=== PATIENT | male | born 1990 | race Caucasian/White ===

== ENCOUNTER 2016-12-15 13:06 | Emergency (ER) | payer OTHER ==
--- NOTE | 2016-12-15 14:07 | ER Document Report ---
ED Medical Screen (RME) - General Chief Complaint: Shoulder Injury Stated Complaint: FALL RIGHT ARM PAIN TRAVEL OUTSIDE OF THE [place] IN LAST 30 DAYS: No - HPI Patient complains to provider of: right shoulder injury Notes: 12/15/16 14:06 Patient fell injuring his right shoulder stay while on a boat - Related Data Allergies/Adverse Reactions: acetaminophen [From Tylenol] Adverse Reaction (Verified 03/09/16 19:25) Past Medical History Renal/ Medical History: Denies: Hx Peritoneal Dialysis GI Medical History: Reports: Hx Hepatitis - C Traumatic Medical History: Reports: Hx Fractures Infectious Medical History: Reports: Hx Hepatitis - C Past Surgical History: Reports: Hx Orthopedic Surgery - right hand - Immunizations Immunizations up to date: Yes Hx Diphtheria, Pertussis, Tetanus Vaccination: Yes Review of Systems - Review of Systems Musculoskeletal: Other - Right shoulder injury Physical Exam - Vital signs Vitals: Temp Pulse Resp BP Pulse Ox 97.9 F 87 16 111/73 95 12/15/16 13:22 12/15/16 13:22 12/15/16 13:22 12/15/16 13:22 12/15/16 13:22 - Respiratory Respiratory status: No respiratory distress Chest status: Nontender Breath sounds: Normal Course - Vital Signs Vital signs: Temp Pulse Resp BP Pulse Ox 97.9 F 87 16 111/73 95 12/15/16 13:22 12/15/16 13:22 12/15/16 13:22 12/15/16 13:22 12/15/16 13:22
--- NOTE | 2016-12-15 15:09 | ER Document Report ---
ED General - General Chief Complaint: Shoulder Injury Stated Complaint: FALL RIGHT ARM PAIN TRAVEL OUTSIDE OF THE [place] IN LAST 30 DAYS: No - HPI Patient complains to provider of: right shoulder injury Notes: Right shoulder injury. 24 hours at the following up with. Patient has a difficult time abduction being his shoulder from the body. Denies any other injuries denies numbness or tingling distal to the injury. - Related Data Allergies/Adverse Reactions: acetaminophen [From Tylenol] Adverse Reaction (Verified 03/09/16 19:25) Past Medical History - Social History Smoking Status: Unknown if Ever Smoked Family History: Reviewed & Not Pertinent Patient has suicidal ideation: No Patient has homicidal ideation: No Renal/ Medical History: Denies: Hx Peritoneal Dialysis GI Medical History: Reports: Hx Hepatitis - C Traumatic Medical History: Reports: Hx Fractures Infectious Medical History: Reports: Hx Hepatitis - C Past Surgical History: Reports: Hx Orthopedic Surgery - right hand - Immunizations Immunizations up to date: Yes Hx Diphtheria, Pertussis, Tetanus Vaccination: Yes Review of Systems - Review of Systems Constitutional: No symptoms reported EENT: No symptoms reported Cardiovascular: No symptoms reported Respiratory: No symptoms reported Gastrointestinal: No symptoms reported Genitourinary: No symptoms reported Male Genitourinary: No symptoms reported Musculoskeletal: Other - Right shoulder injury Skin: No symptoms reported Hematologic/Lymphatic: No symptoms reported Neurological/Psychological: No symptoms reported Physical Exam - Vital signs Vitals: Temp Pulse Resp BP Pulse Ox 97.9 F 87 16 111/73 95 12/15/16 13:22 12/15/16 13:22 12/15/16 13:22 12/15/16 13:22 12/15/16 13:22 Interpretation: Normal - General General appearance: Appears well, Alert - HEENT Head: Normocephalic, Atraumatic Eyes: Normal Pupils: PERRL - Respiratory Respiratory status: No respiratory distress Chest status: Nontender Breath sounds: Normal Chest palpation: Normal - Cardiovascular Rhythm: Regular Heart sounds: Normal auscultation Murmur: No - Abdominal Inspection: Normal Distension: No distension Bowel sounds: Normal Tenderness: Nontender Organomegaly: No organomegaly - Back Back: Normal, Nontender - Extremities General upper extremity: Normal inspection, Nontender, Normal color, Normal ROM , Normal temperature General lower extremity: Nontender, Normal color, Normal ROM, Normal temperature , Normal weight bearing. No: Normal inspection - Tenderness right shoulder examination palpation upon palpating the greater tuberosity. Patient has decreased abduction otherwise can extend and flex the shoulder. Pulses and sensation distally left unaffected, Ana M's sign - Neurological Neuro grossly intact: Yes Cognition: Normal Orientation: AAOx4 [place] Coma Scale Eye Opening: Spontaneous [place] Coma Scale Verbal: Oriented [place] Coma Scale Motor: Obeys Commands [place] Coma Scale Total: 15 Speech: Normal Motor strength normal: LUE, RUE, LLE, RLE Sensory: Normal - Psychological Associated symptoms: Normal affect, Normal mood - Skin Skin Temperature: Warm Skin Moisture: Dry Skin Color: Normal Course - Re-evaluation Re-evalutation: 12/15/16 15:07 X-ray shows no signs of fracture. Patient will be discharged home in a sling follow-up orthopedics. More likely ligamentous injury - Vital Signs Vital signs: Temp Pulse Resp BP Pulse Ox 97.9 F 87 16 111/73 95 12/15/16 13:22 12/15/16 13:22 12/15/16 13:22 12/15/16 13:22 12/15/16 13:22 Discharge - Discharge Clinical Impression: Right shoulder injury Qualifiers: Encounter type: initial encounter Qualified Code(s): S49.91XA - Unspecified injury of right shoulder and upper arm, initial encounter Condition: Good Disposition: HOME, SELF-CARE Instructions: Oral Narcotic Medication ([facility]), Exercise Program for the Shoulder ([facility]), Shoulder Injury ([facility]) Additional Instructions: I see no fracture on your x-ray today. I would recommend following up with orthopedics for possible MRI. Return to the ER symptoms worsen. At this time a radiologist has not reviewed x-ray. If there is anything different we will call you. Take medication as prescribed Prescriptions: Ibuprofen [Motrin 600 mg Tablet] 600 mg PO Q8HP PRN #20 tablet PRN Reason: Oxycodone HCl 5 mg PO Q6 #20 capsule Referrals: LAVONNE AGRAWAL MD [ACTIVE STAFF] - Follow up as needed
[2016-12-15 15:16] VITALS: BP 110/78
== END 2016-12-15 15:16 | disposition home or self-care (01) ==
LOC: ER 13:06
DX: S49.91XA Unspecified injury of right shoulder and upper arm, initial encounter (principal); W19.XXXA Unspecified fall, initial encounter
CPT/HCPCS: 99283

== ENCOUNTER 2017-02-09 18:30 | Emergency (ER) | payer OTHER ==
--- NOTE | 2017-02-09 19:15 | ER Document Report ---
ED Medical Screen (RME) - General Chief Complaint: Abscess Stated Complaint: POSSIBLE ABSCESS LEFT ARM Time Seen by Provider: 02/09/17 19:10 Notes: 26-year-old male patient with a right volar forearm abscess for the past 3 days. I have greeted and performed a rapid initial assessment of this patient. A comprehensive ED assessment and evaluation of the patient, analysis of test results and completion of the medical decision making process will be conducted by additional ED providers. TRAVEL OUTSIDE OF THE [place] IN LAST 30 DAYS: No - Related Data Allergies/Adverse Reactions: acetaminophen [From Tylenol] Adverse Reaction (Verified 02/09/17 19:08) Past Medical History Renal/ Medical History: Denies: Hx Peritoneal Dialysis GI Medical History: Reports: Hx Hepatitis - C Traumatic Medical History: Reports: Hx Fractures Infectious Medical History: Reports: Hx Hepatitis - C Past Surgical History: Reports: Hx Orthopedic Surgery - right hand - Immunizations Immunizations up to date: Yes Hx Diphtheria, Pertussis, Tetanus Vaccination: Yes Physical Exam - Vital signs Vitals: Temp Pulse Resp BP Pulse Ox 98.6 F 105 H 16 124/69 97 02/09/17 18:31 02/09/17 18:31 02/09/17 18:31 02/09/17 18:31 02/09/17 18:31 Course - Vital Signs Vital signs: Temp Pulse Resp BP Pulse Ox 98.6 F 105 H 16 124/69 97 02/09/17 18:31 02/09/17 18:31 02/09/17 18:31 02/09/17 18:31 02/09/17 18:31
[2017-02-09] MEDS ORDERED: OXYCODONE HCL IR 5 MG TABLET PO ONE (21:24)
[2017-02-09] MEDS ORDERED: LIDOCAINE 1%/EPINEPHRINE INJ 20 ML VIAL INJ ONE (21:24)
--- NOTE | 2017-02-09 21:26 | ER Document Report ---
ED Skin Rash/Insect Bite/Abscs - General Mode of Arrival: Ambulatory Information source: Patient TRAVEL OUTSIDE OF THE [place] IN LAST 30 DAYS: No - HPI Patient complains to provider of: Tender/swollen area Onset: Other - 3 days Onset/Duration: Persistent Quality of pain: Achy Severity: Moderate Pain Level: 3 Skin Character: Abscess Skin Temperature: Warm Quality of rash: Painful Identify cause: No Exacerbated by: Denies Relieved by: Denies Similar symptoms previously: Yes Recently seen / treated by doctor: No - General Chief Complaint: Abscess Stated Complaint: POSSIBLE ABSCESS LEFT ARM Time Seen by Provider: 02/09/17 19:10 - HPI Notes: Patient is a 26-year-old male who presents to the emergency room complaining of abscess to his left forearm that has been worsening over the past 3 days, he denies injury or trauma, no fevers, patient does report a history of abscesses in the past that have required incision and drainage (VIOLETTE KAPOOR) - Related Data Allergies/Adverse Reactions: acetaminophen [From Tylenol] Adverse Reaction (Verified 02/09/17 19:08) Past Medical History - General Information source: Patient - Social History Smoking Status: Current Every Day Smoker Family History: Reviewed & Not Pertinent Renal/ Medical History: Denies: Hx Peritoneal Dialysis GI Medical History: Reports: Hx Hepatitis - C Traumatic Medical History: Reports: Hx Fractures Infectious Medical History: Reports: Hx Hepatitis - C Past Surgical History: Reports: Hx Orthopedic Surgery - right hand - Immunizations Immunizations up to date: Yes Hx Diphtheria, Pertussis, Tetanus Vaccination: Yes Review of Systems - Review of Systems Constitutional: No symptoms reported EENT: No symptoms reported Cardiovascular: No symptoms reported Respiratory: No symptoms reported Gastrointestinal: No symptoms reported Genitourinary: No symptoms reported Male Genitourinary: No symptoms reported Musculoskeletal: No symptoms reported Skin: See HPI Hematologic/Lymphatic: No symptoms reported Neurological/Psychological: No symptoms reported -: Yes All other systems reviewed and negative Physical Exam - Vital signs Interpretation: Normal - Vital signs Vitals: Temp Pulse Resp BP Pulse Ox 98.6 F 105 H 16 124/69 97 02/09/17 18:31 02/09/17 18:31 02/09/17 18:31 02/09/17 18:31 02/09/17 18:31 - Notes Notes: - General General appearance: Appears well, Alert In distress: None - HEENT Head: Normocephalic, Atraumatic Eyes: Normal Conjunctiva: Normal Extraocular movements intact: Yes Eyelashes: Normal Pupils: PERRL - Respiratory Respiratory status: No respiratory distress - Cardiovascular Rhythm: Regular - Abdominal Inspection: Normal - Back Back: Normal - Extremities General upper extremity: Medial forearm with a large erythematous fluctuant abscess which is tender to palpate, distal sensation and motor is intact with 2 + radial pulse General lower extremity: Normal inspection - Neurological Neuro grossly intact: Yes Orientation: AAOx4 [place] Coma Scale Eye Opening: Spontaneous [place] Coma Scale Verbal: Oriented [place] Coma Scale Motor: Obeys Commands [place] Coma Scale Total: 15 - Psychological Associated symptoms: Normal affect, Normal mood - Skin Skin Temperature: Warm Skin Moisture: Dry Skin Color: Normal (VIOLETTE KAPOOR) Procedures - Incision and Drainage Left Forearm Time completed: 22:40 Type: Simple Anesthetic type: 1% Lidocaine mL's of anesthetic: 8 Blade size: 11 I&D procedure: Chlorprep applied Incision Method: Incision made by scalpel Adult Front & Back picture: 1 - Large subcutaneous abscess Discharge - Discharge Clinical Impression: Abscess of forearm, left Condition: Stable Disposition: HOME, SELF-CARE Instructions: Abscess ([facility]), Post Incision and Drainage, Oral Narcotic Medication ([facility]), Trimethoprim-Sulfa ([facility]) Additional Instructions: Follow up with your primary care provider in one to 2 days. Return to the emergency room immediately if symptoms worsen or any additional concerns. Prescriptions: Doxycycline Hyclate 100 mg PO BID #14 capsule Oxycodone HCl 5 mg PO Q6 #14 capsule Sulfamethoxazole/Trimethoprim [Bactrim Ds Tablet] 1 each PO BID #20 tablet Forms: Smoking Cessation Education, Return to Work
[2017-02-09] MEDS ORDERED: DOXYCYCLINE HYCLATE 100 MG TABLET PO ONE (22:49)
[2017-02-09 23:26] VITALS: BP 111/60
== END 2017-02-09 22:45 | disposition home or self-care (01) ==
LOC: ER 18:30
PROC: 0H9EXZZ Drainage of Left Lower Arm Skin, External Approach (ICD-10-PCS; principal; 2017-02-09)
DX: L02.414 Cutaneous abscess of left upper limb (principal); F17.200 Nicotine dependence, unspecified, uncomplicated
CPT/HCPCS: 99283; 10060; J3490; A6266

== ENCOUNTER 2017-05-26 10:14 | Emergency (ER) | payer OTHER ==
[2017-05-26 10:18] VITALS: BP 130/71
--- NOTE | 2017-05-26 10:40 | ER Document Report ---
ED Skin Rash/Insect Bite/Abscs - General Chief Complaint: Abscess Stated Complaint: POSSIBLE ABCESS Time Seen by Provider: 05/26/17 10:22 Mode of Arrival: Ambulatory Information source: Patient Notes: 27-year-old male presents to ED for possible abscess to the left buttocks 3 days. Denies any history of face fevers MRSA or drainage. States is progressively getting larger and more painful. TRAVEL OUTSIDE OF THE [place] IN LAST 30 DAYS: No - HPI Patient complains to provider of: Tender/swollen area Onset: Other Onset/Duration: Gradual - 3 days Quality of pain: Burning, Sharp Severity: Moderate Pain Level: 3 Skin Character: Abscess Skin Temperature: Warm Quality of rash: Painful Identify cause: No Exacerbated by: Sitting Relieved by: Denies Similar symptoms previously: Yes Recently seen / treated by doctor: No - Related Data Allergies/Adverse Reactions: acetaminophen [From Tylenol] Adverse Reaction (Verified 05/26/17 10:18) Home Medications: Current Home Medications Duloxetine HCl [Cymbalta] 60 mg PO DAILY 05/26/17 [History] Past Medical History - General Information source: Patient - Social History Smoking Status: Current Every Day Smoker Cigarette use (# per day): Yes - Pack per day Chew tobacco use (# tins/day): No Smoking Education Provided: Yes - Less than 3 minutes Frequency of alcohol use: Occasional Drug Abuse: None 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 Lives with: Family Family History: Malignancy, Other Patient has suicidal ideation: No Patient has homicidal ideation: No - Past Medical History Cardiac Medical History: Reports: None Pulmonary Medical History: Reports: Hx Bronchitis EENT Medical History: Reports: None Neurological Medical History: Reports: Other - Complex regional pain Endocrine Medical History: Reports: None Renal/ Medical History: Reports: None Malignancy Medical History: Reports None GI Medical History: Reports: Hx Hepatitis - C Musculoskeltal Medical History: Reports Hx Musculoskeletal Deformity, Reports Hx Musculoskeletal Trauma Skin Medical History: Reports Hx Cellulitis Psychiatric Medical History: Reports: Hx Depression Traumatic Medical History: Reports: Hx Fractures Infectious Medical History: Reports: Hx Hepatitis - C Past Surgical History: Reports: Hx Orthopedic Surgery - right hand, Hx Tonsillectomy - Immunizations Immunizations up to date: Yes Hx Diphtheria, Pertussis, Tetanus Vaccination: Yes - 2015 Review of Systems - Review of Systems Constitutional: No symptoms reported EENT: No symptoms reported Cardiovascular: No symptoms reported Respiratory: No symptoms reported Gastrointestinal: No symptoms reported Genitourinary: No symptoms reported Male Genitourinary: No symptoms reported Musculoskeletal: Back pain, Muscle pain, Muscle stiffness Skin: No symptoms reported Hematologic/Lymphatic: No symptoms reported Neurological/Psychological: No symptoms reported Physical Exam - Vital signs Vitals: Temp Pulse Resp BP Pulse Ox 97.8 F 82 18 130/71 H 98 05/26/17 10:17 05/26/17 10:17 05/26/17 10:17 05/26/17 10:05/26/17 10:17 Interpretation: Normal - General General appearance: Appears well, Alert - HEENT Head: Normocephalic, Atraumatic Eyes: Normal Pupils: PERRL - Respiratory Respiratory status: No respiratory distress Chest status: Nontender Breath sounds: Normal Chest palpation: Normal - Cardiovascular Rhythm: Regular Heart sounds: Normal auscultation Murmur: No - Abdominal Inspection: Normal Distension: No distension Bowel sounds: Normal Tenderness: Nontender Organomegaly: No organomegaly - Back Back: Normal, Tender. No: Deformity/step-off, CVA tenderness, Vertebra tenderness - Paravertebral ligament tenderness, Scars, Scoliosis, Wounds - Extremities General upper extremity: Normal inspection, Nontender, Normal color, Normal ROM , Normal temperature General lower extremity: Normal inspection, Nontender, Normal color, Normal ROM , Normal temperature, Normal weight bearing. No: Ana M's sign - Neurological Neuro grossly intact: Yes Cognition: Normal Orientation: AAOx4 [place] Coma Scale Eye Opening: Spontaneous [place] Coma Scale Verbal: Oriented [place] Coma Scale Motor: Obeys Commands [place] Coma Scale Total: 15 Speech: Normal Motor strength normal: LUE, RUE, LLE, RLE Sensory: Normal - Psychological Associated symptoms: Normal affect, Normal mood - Skin Skin Temperature: Warm Skin Moisture: Dry Skin Color: Normal Course - Re-evaluation Re-evalutation: 05/26/17 13:17 No loss control of bowel bladder, no loss of muscle control, no loss of sensation, no saddle anesthesia, no signs or symptoms of cauda equina, patient states 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 He has a extensive history of back pain. Patient was given a copy of the written report of the x-ray and discussed with him. Patient to follow-up with his primary doctor and a back specialist. Patient was treated with ibuprofen and IM steroids. He was given a prescription for ibuprofen and muscle relaxers and Phenergan as he states that sometimes the pain makes him nauseated. Patient will be discharged home to follow-up with his primary doctor. - Vital Signs Vital signs: Temp Pulse Resp BP Pulse Ox 97.8 F 82 18 130/71 H 98 05/26/17 10:17 05/26/17 10:17 05/26/17 10:17 05/26/17 10:05/26/17 10:17 Discharge - Discharge Clinical Impression: Abscess of left buttock Condition: Stable Disposition: HOME, SELF-CARE Instructions: Family Physicians / Practices Additional Instructions: ABSCESS: You have an abscess (boil). This a pus-forming infection, usually due to staph. Some boils may be left to drain on their own, but most require lancing. From the time the tender lump first appears, it may be three or four days before the abscess is ready to steven. Local heat and rest help at this stage of treatment. An antibiotic may prevent spread of the infection. Once the abscess is opened, packing may be placed into it. This is done so pus is not sealed inside by premature closure of the cavity. The packing will be removed at your follow-up visit or you may be advised to remove it yourself at home. Sometimes this packing must be replaced a few times during healing. The wound will heal with surprisingly little scar. Depending on the size and location of an abscess, healing can take one to four weeks. You may shower and wash the area around the incision site two or three times a day. Antibiotics may be prescribed, but are usually not necessary after an abscess has been drained. If you develop fever, chills, worsening pain, or increasing swelling in the area, call the doctor or return immediately. POST INCISION AND DRAINAGE: You have had an incision made to allow drainage of an abscess. The incision must remain open so that pus and debris can drain from the wound. If the abscess cavity is large, packing is placed. This keeps the tissues from collapsing and trapping pus inside, while the body shrinks the cavity. The packing may need to be replaced every day or two. The physician will instruct you on the packing. Keep a bulky dressing over the area. Replace it if it becomes saturated with blood or pus. Do not disturb the packing (if present). You may shower and cleanse the area with gentle soap and warm water two or three times a day. Local warmth may be soothing, and may promote faster healing. Return if you develop high fever or chills, or if you note spreading redness, increasing swelling, or increasing tenderness. SOAP CLEANSING: Gently wash the wound daily using a mild soap (like Ivory, Phisoderm, Neutrogena). Use warm water, rubbing gently until all debris, ooze, and crusting have been washed from the wound. Allow to dry briefly (about 10 minutes) after cleaning. Repeat this cleansing at least three times a day for the first two days and then once or twice a day. ANTIBIOTIC OINTMENT PROTECTION: Your wounds are such that dressing them is not practical or optional. After cleansing, you should apply a thin coating of antibiotic ointment ( Bacitracin, not Neosporin) to the wounds at least three times daily. This lessens infection risk, and may decrease the amount of scarring. Use a q-tip or dull butter knife, not your finger, to apply this ointment. Any debris or ooze which builds up in the ointment should be gently rubbed off with a sterile gauze pad. Harder crusting may need to be gently scrubbed off with a clean wash cloth with soap and warm water, perhaps applying a warm, wet wash cloth to the wound for ten minutes first. Development of redness, severe itching, or blistering may mean allergy to the ointment. See the doctor. CEPHALEXIN: The antibiotic you've been prescribed is a member of the cephalosporin class. This type of antibiotic covers a wide variety of infections, including those of the skin, lungs, and urinary tract. It's useful for staph infections. This antibiotic is slightly similar to the penicillin family. In rare cases , a person who is allergic to penicillin will also be allergic to this medication. If you have had a severe allergic reaction to penicillin, and have not taken this antibiotic since that time, notify your doctor. Antibiotics which cover many germs ("broad spectrum" antibiotics) are more likely to cause diarrhea or "yeast" infections. Women prone to vaginal yeast problems may suffer an attack after taking this antibiotic. In infants, oral thrush (white spots "stuck" on the cheek) or yeast diaper rash may result. See your doctor if these problems occur. Call at once if you develop itching, hives , shortness of breath, or lightheadedness. TRIMETHOPRIM-SULFA: You have been given a prescription for trimethoprim-sulfa (TMS, Septra, Bactrim). This is a combination antibiotic of the sulfa class, often used for urinary tract infections, middle ear infections, bronchitis, shigella intestinal infection, and Pneumocystis pneumonia. TMS is usually well-tolerated. Occasional side effects include nausea and decreased appetite. Septra is not recommended for infants less than two months of age. Do not take this medication if you have experienced severe side effects or allergy to sulfa medicine. You should stop this medicine at once and contact your physician if you develop any rash, joint pain, shortness of breath, bruising, or jaundice ( yellow color in the skin), or if you develop any other new or unusual symptoms. Epsom Salt Soaks Soak the wound area in a container of warm epsom salt water. If you can't get the wound area into a bucket or fuentes, use a folded towel soaked in the epsom salt solution and apply to the area. Use clean hot tap water (about the temperature of a very warm bath), mixing in about one (1) teaspoon for every pint of water. Two gallon --> 16 teaspoons Epsom Salts One gallon --> 8 teaspoons Epsom Salts Two quarts --> 4 teaspoons Epsom Salts One quart --> 2 teaspoons Epsom Salts Soak the wound for about 20 minutes while gently moving it around in the water. Repeat this four (4) times a day. FOLLOW-UP CARE: Most simple abscesses will not require a follow up visit. If you had packing placed in the abscess, remove it as instructed by the physician. If you have been referred to a physician for follow-up care, call the physicians office for an appointment as you were instructed or within the next two days. If you experience worsening or a significant change in your symptoms, return to the Emergency Department at any time for re-evaluation. Prescriptions: Cephalexin Monohydrate [Keflex 500 mg Capsule] 500 mg PO QID #20 capsule Sulfamethoxazole/Trimethoprim [Bactrim Ds Tablet] 1 each PO BID #20 tablet Forms: Elevated Blood Pressure, Smoking Cessation Education
== END 2017-05-26 10:49 | disposition home or self-care (01) ==
LOC: ER 10:14
DX: L02.31 Cutaneous abscess of buttock (principal); F17.210 Nicotine dependence, cigarettes, uncomplicated
CPT/HCPCS: 99283

== ENCOUNTER 2017-09-19 20:40 | Emergency (ER) | payer OTHER, MEDICAID ==
--- NOTE | 2017-09-19 22:12 | ER Document Report ---
ED Medical Screen (RME) - General Chief Complaint: Arm Problem Stated Complaint: ARM PAIN Time Seen by Provider: 09/19/17 22:09 Mode of Arrival: Medic Information source: Patient Notes: 27-year-old male with bilateral complex regional pain syndrome in both arms is complaining of increased burning severe pain to his arms because he ran out of gabapentin. He takes 1800 mg nightly (gralise) and has not had it since September 17. In the [facility] when [facility] these flares [facility], oxycodone 10 mg. He thinks that this flare is because he ran out of the gabapentin. TRAVEL OUTSIDE OF THE [place] IN LAST 30 DAYS: No - Related Data Allergies/Adverse Reactions: acetaminophen [From Tylenol] Adverse Reaction (Verified 09/19/17 20:55) Past Medical History Pulmonary Medical History: Reports: Hx Bronchitis Renal/ Medical History: Denies: Hx Peritoneal Dialysis GI Medical History: Reports: Hx Hepatitis - C Musculoskeltal Medical History: Reports Hx Musculoskeletal Deformity, Reports Hx Musculoskeletal Trauma Skin Medical History: Reports Hx Cellulitis Psychiatric Medical History: Reports: Hx Depression Traumatic Medical History: Reports: Hx Fractures Infectious Medical History: Reports: Hx Hepatitis - C Past Surgical History: Reports: Hx Oral Surgery, Hx Orthopedic Surgery - right hand, Hx Tonsillectomy - Immunizations Immunizations up to date: Yes Hx Diphtheria, Pertussis, Tetanus Vaccination: Yes - 2015 Physical Exam - Vital signs Vitals: Temp Pulse Resp BP 98.1 F 55 L 22 H 129/96 H 09/19/17 21:06 09/19/17 21:06 09/19/17 21:06 09/19/17 21:06 Course - Vital Signs Vital signs: Temp Pulse Resp BP Pulse Ox 98.1 F 55 L 22 H 129/96 H 09/19/17 21:06 09/19/17 21:06 09/19/17 21:06 09/19/17 21:06
[2017-09-19] MEDS ORDERED: HYDROMORPHONE HCL INJ/PF 2 MG/ML AMPULE IM ONE (22:59)
[2017-09-19] MEDS ORDERED: HYDROCODONE/ACETAMINOPHEN 5-325 MG (6 TAB/ER DISP) PO PRN (22:59)
--- NOTE | 2017-09-19 23:06 | ER Document Report ---
HPI - HPI Patient complains to provider of: bilateral arm pain Pain Level: 5 Context: Patient is a 27-year-old male that comes emergency department for chief complaint of bilateral arm pain, he states he gets a burning pain in his arms and he breaks out into a sweat on his arms. He has been diagnosed with chronic regional pain syndrome after having multiple tendon repairs on his upper extremities. [facility], both of them are closed due to inclement weather until this coming Friday. He states he is now out of his gabapentin and Cymbalta. He denies fever chills, injury, he denies any new symptoms. He states his symptoms are consistent with the pain that he gets when the weather gets very cold. Past Medical History - General Information source: Patient - Social History Smoking Status: Never Smoker Frequency of alcohol use: Occasional Drug Abuse: None Lives with: Family Family History: Malignancy, Other Patient has suicidal ideation: No Patient has homicidal ideation: No Pulmonary Medical History: Reports: Hx Bronchitis Renal/ Medical History: Denies: Hx Peritoneal Dialysis GI Medical History: Reports: Hx Hepatitis - C Musculoskeltal Medical History: Reports Hx Musculoskeletal Deformity, Reports Hx Musculoskeletal Trauma Skin Medical History: Reports Hx Cellulitis Psychiatric Medical History: Reports: Hx Depression Traumatic Medical History: Reports: Hx Fractures Infectious Medical History: Reports: Hx Hepatitis - C Past Surgical History: Reports: Hx Oral Surgery, Hx Orthopedic Surgery - right hand, Hx Tonsillectomy - Immunizations Immunizations up to date: Yes Hx Diphtheria, Pertussis, Tetanus Vaccination: Yes - 2015 [facility] Provider Document - CONSTITUTIONAL General Appearance: WD/WN, No Apparent Distress - INFECTION CONTROL TRAVEL OUTSIDE OF THE [place] IN LAST 30 DAYS: No - HEENT HEENT: Atraumatic, Normocephalic - NECK Neck: Normal Inspection - RESPIRATORY Respiratory: Breath Sounds Normal, No Respiratory Distress - CARDIOVASCULAR Cardiovascular: Regular Rate, Regular Rhythm - GI/ABDOMEN Gastrointestinal: Abdomen Soft, Abdomen Non-Tender - BACK Back: Normal Inspection - MUSCULOSKELETAL/EXTREMETIES Musculoskeletal/Extremeties: Tender - Patient has pain with palpation which is mild over the general upper extremities and hands. Somewhat clammy hands. Good pulses and sensation. Normal upper extremity exam otherwise. - NEURO Level of Consciousness: Awake, Alert, Appropriate - DERM Integumentary: Warm, Dry, No Rash Course - Re-evaluation Re-evalutation: Patient with no new symptoms although he is in between his regular providers with inability to get to them until a few days from now. He is prescribed his regular medications. Discussed follow-up and return precautions. Patient states understanding and agreement. - Vital Signs Vital signs: Temp Pulse Resp BP Pulse Ox 98.1 F 55 L 22 H 129/96 H 09/19/17 21:06 09/19/17 21:06 09/19/17 21:06 09/19/17 21:06 Discharge - Discharge Clinical Impression: Arm pain Qualifiers: Laterality: bilateral Qualified Code(s): M79.601 - Pain in right arm Condition: Stable Disposition: HOME, SELF-CARE Additional Instructions: Take your prescribed medications as directed. Follow-up closely with your provider for additional management and scripts. Return for any concerning symptoms including fevers, swelling, or any other concerning symptoms. Prescriptions: Duloxetine HCl [Cymbalta] 60 mg PO DAILY #30 capsule. Gabapentin [Gralise] 600 mg PO ASDIR #30 tab.er.24h
[2017-09-19 23:20] VITALS: BP 135/76
== END 2017-09-19 23:24 | disposition home or self-care (01) ==
LOC: ER 20:40
DX: M79.602 Pain in left arm (principal); M79.601 Pain in right arm; Z86.19 Personal history of other infectious and parasitic diseases
CPT/HCPCS: 99283; 96372; J1170

== ENCOUNTER 2017-10-01 13:43 | Emergency (ER) | payer OTHER, MEDICAID ==
[2017-10-01] MEDS ORDERED: OXYCODONE-ACETAMINOPHEN 5-325 MG TABLET PO ONE (14:14)
[2017-10-01] MEDS ORDERED: ONDANSETRON 4 MG TAB.RAPDIS PO ONE (14:14)
--- NOTE | 2017-10-01 14:16 | ER Document Report ---
ED Medical Screen (RME) - General Chief Complaint: Hand Injury Stated Complaint: HAND INJURY Time Seen by Provider: 10/01/17 14:04 Notes: Reports the right third finger was crushed between 2 6 x 6 is. There is an abrasion along the dorsal radial aspect of the proximal phalanx. There is swelling and tenderness over the dorsal proximal phalanx. He is unable to extend the finger at the PIP. There is good flexion. There is prior history of injury to tendon slips on the same finger requiring 3 separate surgeries. He was seen here on 01/10/2016 with another injury, referred to Dr. Sims, but surgery was not necessary on that visit. I have greeted and performed a rapid initial assessment of this patient. A comprehensive ED assessment and evaluation of the patient, analysis of test results and completion of the medical decision making process will be conducted by additional ED providers. TRAVEL OUTSIDE OF THE [place] IN LAST 30 DAYS: No - Related Data Allergies/Adverse Reactions: No Known Allergies Allergy (Verified 10/01/17 13:59) Past Medical History - Social History Chew tobacco use (# tins/day): No Frequency of alcohol use: None Drug Abuse: None Pulmonary Medical History: Reports: Hx Bronchitis Renal/ Medical History: Denies: Hx Peritoneal Dialysis GI Medical History: Reports: Hx Hepatitis - C Musculoskeltal Medical History: Reports Hx Musculoskeletal Deformity, Reports Hx Musculoskeletal Trauma Skin Medical History: Reports Hx Cellulitis Psychiatric Medical History: Reports: Hx Depression Traumatic Medical History: Reports: Hx Fractures Infectious Medical History: Reports: Hx Hepatitis - C Past Surgical History: Reports: Hx Oral Surgery, Hx Orthopedic Surgery - right hand, Hx Tonsillectomy - Immunizations Immunizations up to date: Yes Hx Diphtheria, Pertussis, Tetanus Vaccination: Yes - 2015 Physical Exam - Vital signs Vitals: Temp Pulse Resp BP Pulse Ox 98.6 F 89 15 142/89 H 98 10/01/17 13:55 10/01/17 13:55 10/01/17 13:55 10/01/17 13:55 10/01/17 13:55 Course - Vital Signs Vital signs: Temp Pulse Resp BP Pulse Ox 98.6 F 89 15 142/89 H 98 10/01/17 13:55 10/01/17 13:55 10/01/17 13:55 10/01/17 13:55 10/01/17 13:55
--- NOTE | 2017-10-01 14:57 | RADIOLOGY REPORT (SQ) ---
EXAM DESCRIPTION: FINGER RIGHT COMPLETED DATE/TIME: 10/01/2017 2:40 pm REASON FOR STUDY: R 3rd finger crush, ext tendon injury COMPARISON: None. NUMBER OF VIEWS: Three views. TECHNIQUE: AP, lateral, and oblique images acquired of the right third finger. LIMITATIONS: None. FINDINGS: MINERALIZATION: Normal. BONES: No acute fracture or dislocation. No worrisome bone lesions. SOFT TISSUES: PIP and DIP region soft tissue swelling. No foreign body. OTHER: No other significant finding. IMPRESSION: Soft tissue swelling. No acute fracture 3rd finger COMMENT: SITE OF TRAUMA/COMPLAINT MARKED/STAMP COMPLETED: YES. TECHNICAL DOCUMENTATION: JOB ID: [id number] [employer]- All Rights Reserved
--- NOTE | 2017-10-01 14:59 | ER Document Report ---
ED Hand/Wrist Injury - General Chief Complaint: Hand Injury Stated Complaint: HAND INJURY Time Seen by Provider: 10/01/17 14:04 Notes: Patient at work. Right third digit was hit with board. Unable to extend his middle finger. Has had injured tendon to this on 2 separate occasions requiring 2 different surgeries. [facility]ed by [facility] for [facility] surgery. Small laceration to the radial aspect mid third digit right hand. No other injuries at this time. Pain is rated as a 4/5 on a numeric pain scale. Throbbing. Mild amount of swelling reported. TRAVEL OUTSIDE OF THE [place] IN LAST 30 DAYS: No - HPI Onset: Just prior to arrival Where: Work - Related Data Allergies/Adverse Reactions: No Known Allergies Allergy (Verified 10/01/17 13:59) Past Medical History - General Information source: Patient - Social History Smoking Status: Current Every Day Smoker Chew tobacco use (# tins/day): No Frequency of alcohol use: None Drug Abuse: None Lives with: Family Family History: None, Malignancy, Other Patient has suicidal ideation: No Patient has homicidal ideation: No Pulmonary Medical History: Reports: Hx Bronchitis Renal/ Medical History: Denies: Hx Peritoneal Dialysis GI Medical History: Reports: Hx Hepatitis - C Musculoskeltal Medical History: Reports Hx Musculoskeletal Deformity, Reports Hx Musculoskeletal Trauma Skin Medical History: Reports Hx Cellulitis Psychiatric Medical History: Reports: Hx Depression Traumatic Medical History: Reports: Hx Fractures Infectious Medical History: Reports: Hx Hepatitis - C Past Surgical History: Reports: Hx Oral Surgery, Hx Orthopedic Surgery - right hand, Hx Tonsillectomy - Immunizations Immunizations up to date: Yes Hx Diphtheria, Pertussis, Tetanus Vaccination: Yes - 2016 Review of Systems - Review of Systems Constitutional: No symptoms reported Cardiovascular: No symptoms reported Respiratory: No symptoms reported Musculoskeletal: See HPI Skin: See HPI Hematologic/Lymphatic: No symptoms reported Physical Exam - Vital signs Vitals: Temp Pulse Resp BP Pulse Ox 98.6 F 89 15 142/89 H 98 10/01/17 13:55 10/01/17 13:55 10/01/17 13:55 10/01/17 13:55 10/01/17 13:55 Interpretation: Normal - General General appearance: Appears well In distress: None - Extremities General upper extremity: Normal color, Normal temperature, Other - There is a 1 cm superficial linear abrasion to the radial aspect third digit right hand on the dorsum. Unable to extend at the proximal mid or distal extensor General lower extremity: Normal inspection, Normal ROM - Neurological Neuro grossly intact: Yes Cognition: Normal Orientation: AAOx4 Notes: Sensation intact. Two-point discrimination intact - Skin Skin Temperature: Warm Skin Moisture: Dry Skin Color: Normal, Other - A 1 cm superficial linear abrasion as described in extremity. Located on the third digit of the right hand on the dorsum. Course - Re-evaluation Re-evalutation: 10/01/17 15:33 Obvious fracture seen on x-ray. Laceration was repaired after copious irrigation. Laceration was repaired with Steri-Strips. No complications. Laceration repair was accomplished on the third digit of the right hand. She will be instructed to follow-up with orthopedic surgery. Patient has orthopedic surgery follow-up with the [facility]. Placed in a splint. Patient was reexamined after the placement of splint. Neurovascularly intact with no issues. Will advise him to continue to wear splint until follow- up with [facility] is obtained. - Vital Signs Vital signs: Temp Pulse Resp BP Pulse Ox 98.6 F 89 15 142/89 H 98 10/01/17 13:55 10/01/17 13:55 10/01/17 13:55 10/01/17 13:55 10/01/17 13:55 Discharge - Discharge Clinical Impression: Extensor tendon disruption Condition: Good Disposition: HOME, SELF-CARE Instructions: Tendon Laceration Referral (OM) Additional Instructions: Please wear splint. Please make appointment with your orthopedic surgeon as soon as possible. Return for worsening symptoms or concerns. No using of power tools or heavy equipment while waiting orthopedic follow-up and while on pain medications. Prescriptions: Hydrocodone/Acetaminophen [Farrar 5-325 mg Tablet] 1 tab PO TID PRN 4 Days #12 tablet PRN Reason: Pain Scale Of 3 Forms: Return to Work Referrals: EILEEN JOYA DO [ACTIVE STAFF] - Follow up in 1 week
[2017-10-01 16:45] VITALS: BP 128/70
== END 2017-10-01 15:45 | disposition home or self-care (01) ==
LOC: ER 13:43
DX: S69.91XA Unspecified injury of right wrist, hand and finger(s), initial encounter (principal); S61.212A Laceration without foreign body of right middle finger without damage to nail, initial encounter; W22.8XXA Striking against or struck by other objects, initial encounter; Y99.0 Civilian activity done for income or pay; F17.200 Nicotine dependence, unspecified, uncomplicated
CPT/HCPCS: 99283; 73140; S0119

== ENCOUNTER 2017-11-23 21:13 | Emergency (ER) | payer OTHER, MEDICAID ==
[2017-11-23] MEDS ORDERED: IBUPROFEN 600 MG TABLET PO ONE (23:02)
[2017-11-23] MEDS ORDERED: MORPHINE SULFATE IR 15 MG TABLET PO ONE (23:02)
[2017-11-23] MEDS ORDERED: ACETAMINOPHEN 325 MG TABLET PO ONE (23:03)
--- NOTE | 2017-11-23 23:36 | ER Document Report ---
ED General - General Chief Complaint: Pain All Over Stated Complaint: SHOULDER/ARM PAIN Time Seen by Provider: 11/23/17 22:33 Notes: Patient is a 27-year-old male with a past medical history of CRPS of the right upper extremity who presents with an acute flare of his underlying condition. The patient describes it as a severe, constant, burning pain to the right upper extremity that is been worse over the last 36 hours. Patient reports that his been taking gabapentin as well as Cymbalta which she takes at baseline usually help with his pain. However he reports that in the past 36 hours it is been minimally helpful. He has had similar flares in the past. He is presenting stating that the pain is gotten to the point where he can no longer sleep. [facility] this [facility] of his pain but is not able to be seen for the next several days. He denies any focal weakness, numbness, chest pain, shortness of breath, fever or constitutional symptoms. He notes that any touch to the upper extremity worsens the pain. TRAVEL OUTSIDE OF THE [place] IN LAST 30 DAYS: No - Related Data Allergies/Adverse Reactions: No Known Allergies Allergy (Verified 10/01/17 13:59) Past Medical History - General Information source: Patient - Social History Smoking Status: Current Every Day Smoker Chew tobacco use (# tins/day): No Frequency of alcohol use: Rare Drug Abuse: None Lives with: Spouse/Significant other Family History: Reviewed & Not Pertinent, Malignancy, Other Patient has suicidal ideation: No Patient has homicidal ideation: No Pulmonary Medical History: Reports: Hx Bronchitis Renal/ Medical History: Denies: Hx Peritoneal Dialysis GI Medical History: Reports: Hx Hepatitis - C Musculoskeltal Medical History: Reports Hx Musculoskeletal Deformity, Reports Hx Musculoskeletal Trauma Skin Medical History: Reports Hx Cellulitis Psychiatric Medical History: Reports: Hx Depression Traumatic Medical History: Reports: Hx Fractures Infectious Medical History: Reports: Hx Hepatitis - C Past Surgical History: Reports: Hx Oral Surgery, Hx Orthopedic Surgery - right hand, Hx Tonsillectomy - Immunizations Immunizations up to date: Yes Hx Diphtheria, Pertussis, Tetanus Vaccination: Yes - 2015 Review of Systems - Review of Systems Notes: Constitutional: Negative for fever. HENT: Negative for sore throat. Eyes: Negative for visual changes. Cardiovascular: Negative for chest pain. Respiratory: Negative for shortness of breath. Gastrointestinal: Negative for abdominal pain, vomiting or diarrhea. Genitourinary: Negative for dysuria. Musculoskeletal: Positive right upper extremity pain Skin: Negative for rash. Neurological: Negative for headaches, weakness or numbness. 10 point ROS negative except as marked above and in HPI. Physical Exam - Vital signs Vitals: Temp Pulse Resp BP Pulse Ox 98.2 F 111 H 16 123/79 97 11/23/17 21:49 11/23/17 21:49 11/23/17 21:49 11/23/17 21:49 11/23/17 21:49 Interpretation: Tachycardic Notes: PHYSICAL EXAMINATION: GENERAL: Appears uncomfortable but in no acute distress HEAD: Atraumatic, normocephalic. EYES: Pupils equal round and reactive to light, extraocular movements intact, sclera anicteric, conjunctiva are normal. ENT: nares patent, oropharynx clear without exudates. Moderately dry mucous membranes. NECK: Normal range of motion, supple without lymphadenopathy LUNGS: Breath sounds clear to auscultation bilaterally and equal. No wheezes rales or rhonchi. HEART: Regular rate and rhythm without murmurs ABDOMEN: Soft, nontender, normoactive bowel sounds. No guarding, no rebound. No masses appreciated. EXTREMITIES: Normal range of motion, no pitting or edema. No cyanosis. NEUROLOGICAL: No focal neurological deficits. Moves all extremities spontaneously and on command. PSYCH: Normal mood, normal affect. SKIN: Warm, Dry, normal turgor, no rashes or lesions noted. Course - Re-evaluation Re-evalutation: 11/23/17 23:35 Patient presents with an exacerbation of his complex regional pain syndrome on the right upper extremity. He is currently being treated with gabapentin as well as Cymbalta and states is normally control his pain but tonight he has had a flare for the past 36 hours as preventing him from even sleeping. I have provided the patient with oral morphine, oral ibuprofen and Tylenol with some improvement of his pain. He understands that we cannot prescribe for chronic pain and is not requesting this. He has no focal neurologic deficits, no new injuries or concerns. No indication for labs or imaging. At this time will discharge with return precautions and follow-up recommendations. Verbal discharge instructions given a the bedside and opportunity for questions given. Medication warnings reviewed. Patient is in agreement with this plan and has verbalized understanding of return precautions and the need for primary care follow-up in the next 24-72 hours. - Vital Signs Vital signs: Temp Pulse Resp BP Pulse Ox 98.5 F 83 16 108/66 100 11/24/17 00:49 11/24/17 00:49 11/24/17 00:49 11/24/17 00:49 11/24/17 00:49 Discharge - Discharge Clinical Impression: CRPS (complex regional pain syndrome) Qualifiers: Complex regional pain syndrome type: type I Complex regional pain syndrome affected site: upper extremity Laterality: right Qualified Code(s): G90.511 - Complex regional pain syndrome I of right upper limb Condition: Good Disposition: HOME, SELF-CARE Additional Instructions: Please return to the emergency room immediately if you experience any concerning symptoms including high fevers, severe headache, chest pain, difficulty breathing, abdominal pain, slurred speech, numbness or weakness in your arms or legs, or any other symptom that concerns you.
[2017-11-24] MEDS ORDERED: HYDROCODONE/ACETAMINOPHEN 5-325 MG (6 TAB/ER DISP) PO PRN (00:42)
[2017-11-24 00:56] VITALS: BP 108/66
== END 2017-11-24 00:57 | disposition home or self-care (01) ==
LOC: ER 21:13
DX: G90.511 Complex regional pain syndrome I of right upper limb (principal); M79.1 Myalgia; F17.200 Nicotine dependence, unspecified, uncomplicated; Z86.19 Personal history of other infectious and parasitic diseases
CPT/HCPCS: 99283

== ENCOUNTER 2018-07-08 17:04 | Emergency (ER) | payer MEDICAID, OTHER ==
[2018-07-08] MEDS ORDERED: NORMAL SALINE 1000 ML 1,000 ML IV ONE (18:24)
[2018-07-08 19:07] LABS: ABSOLUTE BASOPHILS # (AUTO) 0.1 10^3/uL (0.0-0.2); ABSOLUTE EOSINOPHILS # (AUTO) 0.5 10^3/uL (0.0-0.6); ABSOLUTE LYMPHOCYTES (AUTO) 3.2 10^3/uL (0.5-4.7); ABSOLUTE NEUT (AUTO) 7.5 10^3/uL (1.7-8.2); BASOPHILS % (AUTO) 0.8 % (0-2); HEMATOCRIT 48.3 % (37.9-51.0); HEMOGLOBIN 16.6 g/dL (13.5-17.0); LYMPHOCYTES % (AUTO) 26.2 % (13-45); MEAN CORPUSCULAR HEMOGLOBIN 30.6 pg (27.0-33.4); MEAN CORPUSCULAR HGB CONC 34.4 g/dL (32.0-36.0); MEAN CORPUSCULAR VOLUME 89 fl (80-97); MONOCYTES % (AUTO) 7.9 % (3-13); PLATELET COUNT 240 10^3/uL (150-450); RED BLOOD COUNT 5.44 10^6/uL (4.35-5.55); RED CELL DISTRIBUTION WIDTH 14.2 % (11.5-14.0); SEGMENTED NEUTROPHILS % (AUTO) 61.1 % (42-78); TOTAL CELLS COUNTED % (AUTO) 100 %; WHITE BLOOD COUNT 12.3 10^3/uL (4.0-10.5)
--- NOTE | 2018-07-08 19:21 | RADIOLOGY REPORT (SQ) ---
EXAM DESCRIPTION: HAND LEFT 3 VIEWS COMPLETED DATE/TIME: 07/08/2018 7:08 pm REASON FOR STUDY: infection to left hand COMPARISON: None. EXAM PARAMETERS: NUMBER OF VIEWS: Three views. TECHNIQUE: AP, lateral and oblique radiographic images acquired of the left hand. LIMITATIONS: None. FINDINGS: MINERALIZATION: Normal. BONES: No acute fracture or dislocation. No worrisome bone lesions. JOINTS: No effusions. SOFT TISSUES: Soft tissue swelling. OTHER: No other significant finding. IMPRESSION: Soft tissue swelling with no osseous abnormality. TECHNICAL DOCUMENTATION: JOB ID: [id number] [email or web address]- All Rights Reserved Reading location - IP/workstation name: [email or web address]
[2018-07-08 19:34] LABS: ALANINE AMINOTRANSFERASE 233 U/L (21-72); ALBUMIN 4.9 g/dL (3.5-5.0); ALKALINE PHOSPHATASE 117 U/L (38-126); ANION GAP 16 (5-19); ASPARTATE AMINO TRANSFERASE 153 U/L (17-59); BILIRUBIN,DIRECT 0.2 mg/dL (0.0-0.4); BILIRUBIN,TOTAL 0.4 mg/dL (0.2-1.3); BLOOD UREA NITROGEN 11 mg/dL (7-20); CARBON DIOXIDE 30 mmol/L (22-30); CHLORIDE 94 mmol/L (98-107); GLUCOSE 109 mg/dL (75-110); POTASSIUM 4.3 mmol/L (3.6-5.0); SODIUM 140.2 mmol/L (137-145); TOTAL PROTEIN 8.7 g/dL (6.3-8.2)
--- NOTE | 2018-07-08 19:40 | ER Document Report ---
ED Hand/Wrist Injury - General Chief Complaint: Hand Swelling Stated Complaint: HAND PAIN Time Seen by Provider: 07/08/18 18:03 Mode of Arrival: Ambulatory Information source: Patient TRAVEL OUTSIDE OF THE [place] IN LAST 30 DAYS: No - Related Data Allergies/Adverse Reactions: No Known Allergies Allergy (Verified 07/08/18 17:08) Past Medical History - Social History Smoking Status: Current Every Day Smoker Family History: Reviewed & Not Pertinent, Malignancy, Other Patient has suicidal ideation: No Patient has homicidal ideation: No Pulmonary Medical History: Reports: Hx Bronchitis Renal/ Medical History: Denies: Hx Peritoneal Dialysis GI Medical History: Reports: Hx Hepatitis - C Musculoskeletal Medical History: Reports Hx Musculoskeletal Deformity, Reports Hx Musculoskeletal Trauma Skin Medical History: Reports Hx Cellulitis Psychiatric Medical History: Reports: Hx Depression Traumatic Medical History: Reports: Hx Fractures Infectious Medical History: Reports: Hx Hepatitis - C Past Surgical History: Reports: Hx Genitourinary Surgery - Vasectomy, Hx Oral Surgery, Hx Orthopedic Surgery - right hand, Hx Tonsillectomy - Immunizations Immunizations up to date: Yes Hx Diphtheria, Pertussis, Tetanus Vaccination: Yes - 2016 Course - Laboratory Result Diagrams: 07/08/18 18:58 07/08/18 18:58 Laboratory results interpreted by me: 07/08/18 07/08/18 07/08/18 18:58 18:58 18:58 WBC 12.3 H RDW 14.2 H Chloride 94 L AST 153 H ALT 233 H C-React Prot High Sens > 15.0000 H Total Protein 8.7 H
[2018-07-08] MEDS ORDERED: CLINDAMYCIN 600 MG/D5W RTU 600 MG/50 ML RTUPB IV ONE (19:53)
--- NOTE | 2018-07-08 19:53 | ER Document Report ---
ED Extremity Problem, Upper - General Chief Complaint: Hand Swelling Stated Complaint: HAND PAIN Time Seen by Provider: 07/08/18 18:03 Mode of Arrival: Ambulatory Information source: Patient Notes: 28-year-old male presented to ED for complaint of pain swelling and infection to his left hand. He also has some red bumps in his right axilla. He states that he got these sores while shrimping last week. States he has a history of MSSA pericarditis that he is not had a history of MRSA though. Patient is alert and oriented respirations regular and unlabored speaking in full sentences. TRAVEL OUTSIDE OF THE [place] IN LAST 30 DAYS: No - HPI Patient complains to provider of: Left, Forearm, Hand, Wrist Onset: Last week Recent injury: No Where: Other - shrimping last week Quality of pain: Pressure, Sharp, Throbbing Severity of pain: Moderate Pain Level: 4 Context: Other - Affected lacerations from from shrimping Associated symptoms: None Exacerbated by: Movement, Exertion Relieved by: Nothing Similar symptoms previously: Yes Recently seen / treated by doctor: No - Related Data Allergies/Adverse Reactions: No Known Allergies Allergy (Verified 07/08/18 17:08) Past Medical History - General Information source: Patient - Social History Smoking Status: Current Every Day Smoker Cigarette use (# per day): Yes - ppd Smoking Education Provided: Yes - 4 min Frequency of alcohol use: Rare Drug Abuse: None 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 Lives with: Spouse/Significant other Family History: Reviewed & Not Pertinent, Malignancy, Other Patient has suicidal ideation: No Patient has homicidal ideation: No - Past Medical History Cardiac Medical History: Reports: None Pulmonary Medical History: Reports: Hx Bronchitis EENT Medical History: Reports: None Neurological Medical History: Reports: None Endocrine Medical History: Reports: None Renal/ Medical History: Reports: None Malignancy Medical History: Reports None GI Medical History: Reports: Hx Hepatitis - C Musculoskeletal Medical History: Reports Hx Musculoskeletal Deformity, Reports Hx Musculoskeletal Trauma Skin Medical History: Reports Hx Cellulitis Psychiatric Medical History: Reports: Hx Depression Traumatic Medical History: Reports: Hx Fractures Infectious Medical History: Reports: Hx Hepatitis - C Past Surgical History: Reports: Hx Genitourinary Surgery - Vasectomy, Hx Oral Surgery, Hx Orthopedic Surgery - right hand, Hx Tonsillectomy - Immunizations Immunizations up to date: Yes Hx Diphtheria, Pertussis, Tetanus Vaccination: Yes - 2015 Review of Systems - Review of Systems Constitutional: No symptoms reported EENT: No symptoms reported Cardiovascular: No symptoms reported Respiratory: No symptoms reported Gastrointestinal: No symptoms reported Genitourinary: No symptoms reported Male Genitourinary: No symptoms reported Musculoskeletal: No symptoms reported Skin: Change in color, Other - Inflamed swelling left hand and fingers with multiple infected lacerations/cellulitis Hematologic/Lymphatic: No symptoms reported Neurological/Psychological: No symptoms reported -: Yes All other systems reviewed and negative Physical Exam - Vital signs Vitals: Temp Pulse Resp BP Pulse Ox 98.0 F 82 16 126/93 H 100 07/08/18 17:53 07/08/18 17:53 07/08/18 17:53 07/08/18 17:53 07/08/18 17:53 Interpretation: Normal - General General appearance: Appears well, Alert - HEENT Head: Normocephalic, Atraumatic Eyes: Normal Pupils: PERRL - Respiratory Respiratory status: No respiratory distress Chest status: Nontender Breath sounds: Normal Chest palpation: Normal - Cardiovascular Rhythm: Regular Heart sounds: Normal auscultation Murmur: No - Abdominal Inspection: Normal Distension: No distension Bowel sounds: Normal Tenderness: Nontender Organomegaly: No organomegaly - Back Back: Normal, Nontender - Extremities General upper extremity: Normal inspection, Nontender, Normal color, Normal ROM , Normal temperature General lower extremity: Normal inspection, Nontender, Normal color, Normal ROM , Normal temperature, Normal weight bearing. No: Ana M's sign - Neurological Neuro grossly intact: Yes Cognition: Normal Orientation: AAOx4 Jeremy Coma Scale Eye Opening: Spontaneous [place] Coma Scale Verbal: Oriented Jeremy Coma Scale Motor: Obeys Commands [place] Coma Scale Total: 15 Speech: Normal Motor strength normal: LUE, RUE, LLE, RLE Sensory: Normal - Psychological Associated symptoms: Normal affect, Normal mood - Skin Skin Temperature: Warm Skin Moisture: Dry Skin Color: Normal Skin irregularity: Laceration - Multiple small lacerations to the knuckles and hand Character of irregularity: Erythematous Irregularity with: Swelling, Tenderness, Warmth, Inflammation Course - Re-evaluation Re-evalutation: 07/09/18 00:[address] Shyanne bahena for the cellulitis and swelling to the left hand and fingers. He came and examined the hand. Patient was given IV clindamycin per his recommendation as well as 600 mg p.o. to take 300 tonight before bed and 300 in the morning. He was given a prescription for clindamycin 300 mg 6 hours and instructed to return to the ED immediately for any increase in swelling pain or drainage. X-ray was negative for any bony involvement. Was instructed to soak hands and Epson salt and apply bacitracin to the wounds. - Vital Signs Vital signs: Temp Pulse Resp BP Pulse Ox 98.1 F 86 16 137/80 H 96 07/08/18 20:38 07/08/18 20:38 07/08/18 20:38 07/08/18 20:38 07/08/18 20:38 - Laboratory Result Diagrams: 07/08/18 18:58 07/08/18 18:58 Laboratory results interpreted by me: 07/08/18 07/08/18 07/08/18 18:58 18:58 18:58 WBC 12.3 H RDW 14.2 H Chloride 94 L AST 153 H ALT 233 H C-React Prot High Sens > 15.0000 H Total Protein 8.7 H - Diagnostic Test Radiology reviewed: Image reviewed, Reports reviewed Discharge - Discharge Clinical Impression: Cellulitis of left hand Pain in hand Qualifiers: Laterality: left Qualified Code(s): M79.642 - Pain in left hand Condition: Stable Disposition: HOME, SELF-CARE Additional Instructions: CELLULITIS: You have an infection of your skin and underlying soft tissues called cellulitis. This is due to bacteria, which can enter through any break in the skin, or even through an irritated hair follicle. Untreated, cellulitis will usually worsen. Antibiotics are required. Usually, warm packs or warm soaks, and elevation of the infected area are recommended. You should start getting better within 24 to 36 hours. Most infections respond quickly to the right medication. Follow-up care is important, however, to check for abscess (boil) formation, unsuspected foreign body, or resistant infection. If you develop fever, chills, or if the area of infection is becoming rapidly more swollen or painful, call the doctor at once. CLINDAMYCIN: You have been given a prescription for the antibiotic clindamycin. It is often prescribed for infections in the mouth, such as dental infections or abscesses, and for skin infections due to MRSA. It's important that you take all the medication, unless instructed otherwise by your physician. Failure to complete the entire course can result in relapse of your condition. Common side effects of antibiotics include nausea, intestinal cramping, or diarrhea. Women may develop vaginal yeast infections, and babies can get yeast (thrush) in the mouth following the use of antibiotics. Contact your physician if you develop significant side effects from this medication. Allergy to this antibiotic can result in hives, wheezing, faintness, or itching. If symptoms of allergy occur, stop the medication and call the doctor. Acetaminophen Acetaminophen may be taken for pain relief or fever control. It's much safer than aspirin, offering a wider range of "safe" dosages. It is safe during . Some brand names are Tylenol, Panadol, Datril, Anacin 3, Tempra, and Liquiprin. Acetaminophen can be repeated every four hours. The following are maximum recommended dosages: WEIGHT Dose Drops Elixir Chewable( 80mg) (LBS.) drprs=droppers tsp=teaspoon 6 40 mg .4 ml (1/2) 6-11 80 mg .8 ml (full) 1/2 tsp 1 tab 12-16 120 mg 1 1/2 drprs 3/4 tsp 1 1/2 tabs 17-23 160 mg 2 drprs 1 tsp 2 tabs 24-30 240 mg 3 drprs 1 1/2 tsp 3 tabs 30-35 320 mg 2 tsp 4 tabs 36-41 360 mg 2 1/4 tsp 4 1 /2 tabs 42-47 400 mg 2 1/2 tsp 5 tabs 48-53 480 mg 3 tsp 6 tabs 54-59 520 mg 3 1/4 tsp 6 1 /2 tabs 60-64 560 mg 3 1/2 tsp 7 tabs 65-70 600 mg 3 3/4 tsp 7 1 /2 tabs 71-76 640 mg 4 tsp 8 tabs 77-82 720 mg 4 1/2 tsp 9 tabs 83-88 800 mg 5 tsp 10 tabs >89 pounds or adults 650 mg to 900 mg Acetaminophen can be repeated every four hours. Maximum daily dose not to exceed 4000 mg. These maximum recommended dosages are slightly higher than the dosages written on the product container, but these dosages are very safe and well below the toxic dosage for acetaminophen. Epsom Salt Soaks Soak the wound area in a container of warm epsom salt water. If you can't get the wound area into a bucket or fuentes, use a folded towel soaked in the epsom salt solution and apply to the area. Use clean hot tap water (about the temperature of a very warm bath), mixing in about one (1) teaspoon for every pint of water. Two gallon --> 16 teaspoons Epsom Salts One gallon --> 8 teaspoons Epsom Salts Two quarts --> 4 teaspoons Epsom Salts One quart --> 2 teaspoons Epsom Salts Soak the wound for about 20 minutes while gently moving it around in the water. Repeat this four (4) times a day. FOLLOW-UP CARE: If you have been referred to a physician for follow-up care, call the physician s office for an appointment as you were instructed or within the next two days. If you experience worsening or a significant change in your symptoms, notify the physician immediately or return to the Emergency Department at any time for re-evaluation. Prescriptions: Clindamycin HCl 300 mg PO Q6 #28 capsule Forms: Elevated Blood Pressure, Smoking Cessation Education, Return to Work Referrals: EILEEN JOYA, [ACTIVE STAFF] - Follow up as needed
[2018-07-08] MEDS ORDERED: CLINDAMYCIN HCL 150 MG CAPSULE PO ONE (20:28)
[2018-07-08 20:40] VITALS: BP 137/80
== END 2018-07-08 20:42 | disposition home or self-care (01) ==
LOC: ER 17:04
DX: L03.114 Cellulitis of left upper limb (principal); M79.642 Pain in left hand; M79.89 Other specified soft tissue disorders; Z86.14 Personal history of Methicillin resistant Staphylococcus aureus infection; F17.210 Nicotine dependence, cigarettes, uncomplicated
CPT/HCPCS: 99284; 96361; 96365; 36415; 87040; 87070; 87205; 85025; 87077; 80053; 87186; 86141; 73130; J7030

== ENCOUNTER 2019-07-12 12:35 | Emergency (ER) | payer OTHER ==
[2019-07-12] MEDS ORDERED: HYDROCODONE/ACETAMINOPHEN 5-325 MG TABLET PO ONE (13:08)
--- NOTE | 2019-07-12 13:16 | ER Document Report ---
ED Medical Screen (RME) - General Chief Complaint: right arm pain Stated Complaint: RIGHT ARM PAIN, SWELLING Time Seen by Provider: 07/12/19 13:02 Notes: Patient is a 29-year-old male who presents the emergency department with right arm pain. Patient states that he has complex regional pain syndrome and he is currently seeing pain management, but does not have a contract yet. For the past 2 days he has had his pain and noticed some swelling to his right arm. He is currently on tramadol and his last dose was at 9:00 this morning. He is also currently on gabapentin. Exam: Edema and discoloration to right upper extremity. I have greeted and performed a rapid initial assessment of this patient. A comprehensive ED assessment and evaluation of the patient, analysis of test results and completion of medical decision making process will be conducted by an additional ED providers. TRAVEL OUTSIDE OF THE [place] IN LAST 30 DAYS: No - Related Data Allergies/Adverse Reactions: No Known Allergies Allergy (Verified 07/08/18 17:08) Past Medical History - Social History Chew tobacco use (# tins/day): No Frequency of alcohol use: None Drug Abuse: None Pulmonary Medical History: Reports: Hx Bronchitis Renal/ Medical History: Denies: Hx Peritoneal Dialysis GI Medical History: Reports: Hx Hepatitis - C Musculoskeltal Medical History: Reports Hx Musculoskeletal Deformity, Reports Hx Musculoskeletal Trauma Skin Medical History: Reports Hx Cellulitis Psychiatric Medical History: Reports: Hx Depression Traumatic Medical History: Reports: Hx Fractures Infectious Medical History: Reports: Hx Hepatitis - C Past Surgical History: Reports: Hx Genitourinary Surgery - Vasectomy, Hx Oral Surgery, Hx Orthopedic Surgery - right hand, Hx Tonsillectomy - Immunizations Immunizations up to date: Yes Hx Diphtheria, Pertussis, Tetanus Vaccination: Yes - 2015 Physical Exam - Vital signs Vitals: Temp Pulse Resp BP Pulse Ox 98.3 F 95 18 127/71 H 97 07/12/19 12:40 07/12/19 12:40 07/12/19 12:40 07/12/19 12:40 07/12/19 12:40 Course - Vital Signs Vital signs: Temp Pulse Resp BP Pulse Ox 98.3 F 95 18 127/71 H 97 07/12/19 12:40 07/12/19 12:40 07/12/19 12:40 07/12/19 12:40 07/12/19 12:40
--- NOTE | 2019-07-12 14:41 | RADIOLOGY REPORT (SQ) ---
EXAM DESCRIPTION: VENOUS UNILATERAL UPPER COMPLETED DATE/TIME: 07/12/2019 2:29 pm REASON FOR STUDY: right arm pain and swelling COMPARISON: None. TECHNIQUE: Dynamic and static saul scale and color images acquired of the right arm venous system. S elected spectral images acquired with additional compression and augmentation maneuvers. The contrala teral subclavian vein and internal jugular vein were also imaged. Images stored on PACS. LIMITATIONS: None. FINDINGS: INTERNAL JUGULAR VEIN: Normal phasicity, compression, augmentation. No visualized echogeni c material on saul scale. No defects on color images. Comparison opposite side normal. SUBCLAVIAN VEIN: Normal compression, augmentation. No visualized echogenic material on saul scale. No defects on color images. AXILLARY VEIN: Normal compression, augmentation. No visualized echogenic material on saul scale. No d efects on color images. BRACHIAL VEIN: Normal compression, augmentation. No visualized echogenic material on saul scale. No d efects on color images. BASILIC VEIN: Normal compression, augmentation. No visualized echogenic material on saul scale. No de fects on color images. CEPHALIC VEIN: Normal compression, augmentation. No visualized echogenic material on saul scale. No d efects on color images. OTHER: Normal triphasic waveforms in the ulnar and radial arteries. CONTRALATERAL SUBCLAVIAN VEIN AND INTERNAL JUGULAR VEIN: Normal phasicity, compression and augmentation. No visualized echogenic material on saul scale. No de fects on color images. IMPRESSION: NO EVIDENCE DVT OR SVT RIGHT ARM. TECHNICAL DOCUMENTATION: JOB ID: [id number] [employer]- All Rights Reserved Reading location - IP/workstation name: [email or web address]
[2019-07-12 18:36] LABS: ABSOLUTE BASOPHILS # (AUTO) 0.1 10^3/uL (0.0-0.2); ABSOLUTE EOSINOPHILS # (AUTO) 0.1 10^3/uL (0.0-0.6); ABSOLUTE LYMPHOCYTES (AUTO) 3.5 10^3/uL (0.5-4.7); ABSOLUTE MONOCYTES (AUTO) 0.5 10^3/uL (0.1-1.4); ABSOLUTE NEUT (AUTO) 3.5 10^3/uL (1.7-8.2); BASOPHILS % (AUTO) 0.9 % (0-2); HEMATOCRIT 42.2 % (37.9-51.0); HEMOGLOBIN 14.3 g/dL (13.5-17.0); LYMPHOCYTES % (AUTO) 45.8 % (13-45); MEAN CORPUSCULAR HEMOGLOBIN 26.9 pg (27.0-33.4); MEAN CORPUSCULAR HGB CONC 33.8 g/dL (32.0-36.0); MEAN CORPUSCULAR VOLUME 80 fl (80-97); MONOCYTES % (AUTO) 6.7 % (3-13); PLATELET COUNT 278 10^3/uL (150-450); RED BLOOD COUNT 5.31 10^6/uL (4.35-5.55); RED CELL DISTRIBUTION WIDTH 15.1 % (11.5-14.0); SEGMENTED NEUTROPHILS % (AUTO) 45.6 % (42-78); TOTAL CELLS COUNTED % (AUTO) 100 %; WHITE BLOOD COUNT 7.8 10^3/uL (4.0-10.5)
[2019-07-12 18:56] LABS: ALBUMIN 4.6 g/dL (3.5-5.0); ALKALINE PHOSPHATASE 120 U/L (38-126); ANION GAP 10 (5-19); ASPARTATE AMINO TRANSFERASE 28 U/L (17-59); BILIRUBIN,DIRECT 0.1 mg/dL (0.0-0.4); BILIRUBIN,TOTAL 0.4 mg/dL (0.2-1.3); BLOOD UREA NITROGEN 5 mg/dL (7-20); CALCIUM 9.8 mg/dL (8.4-10.2); CARBON DIOXIDE 28 mmol/L (22-30); CHLORIDE 104 mmol/L (98-107); GLUCOSE 72 mg/dL (75-110); POTASSIUM 3.7 mmol/L (3.6-5.0)
[2019-07-12] MEDS ORDERED: KETOROLAC TROMETHAMINE INJ/PF 30 MG/1 ML SDV IV ONE (19:02)
[2019-07-12] MEDS ORDERED: HYDROMORPHONE HCL INJ/PF 2 MG/ML AMPULE IV ONE (19:02)
[2019-07-12] MEDS ORDERED: NORMAL SALINE 1000 ML 500 ML IV ONE (19:02)
--- NOTE | 2019-07-12 19:08 | ER Document Report ---
ED Extremity Problem, Upper - General Chief Complaint: Arm Problem Stated Complaint: RIGHT ARM PAIN, SWELLING Time Seen by Provider: 07/12/19 13:02 Primary Care Provider: [facility] [Primary Care Provider] - Follow up as needed Mode of Arrival: Ambulatory Information source: Patient TRAVEL OUTSIDE OF THE [place] IN LAST 30 DAYS: No - HPI Notes: Patient presents stating he is having a flare of his complex regional pain syndrome. He states he has this in his right arm secondary to surgeries he had on a tendon in the right hand. He states this is a injury. He states he has an appointment next week with [facility]. He states that he called them [facility] and they asked him to come to the emergency department for pain relief. He states that he has gabapentin and tramadol. He states that he has an appointment next week with [facility]. He states he called them [facility] and they referred him to the emergency department. He states that he is not concerned about any type of infection or injury to the right arm. He states this feels like his usual flare of pain. The pain is severe and const ant. It is in the right arm. It is worse with movement and better with rest. It radiates up the right arm and is a burning sensation. - Related Data Allergies/Adverse Reactions: No Known Allergies Allergy (Verified 07/08/18 17:08) Past Medical History - General Information source: Patient - Social History Smoking Status: Current Every Day Smoker Chew tobacco use (# tins/day): No Frequency of alcohol use: None Drug Abuse: None Family History: Reviewed & Not Pertinent, Malignancy, Other Patient has suicidal ideation: No Patient has homicidal ideation: No Pulmonary Medical History: Reports: Hx Bronchitis Renal/ Medical History: Denies: Hx Peritoneal Dialysis GI Medical History: Reports: Hx Hepatitis - C Musculoskeletal Medical History: Reports Hx Musculoskeletal Deformity, Reports Hx Musculoskeletal Trauma Skin Medical History: Reports Hx Cellulitis Psychiatric Medical History: Reports: Hx Depression Traumatic Medical History: Reports: Hx Fractures Infectious Medical History: Reports: Hx Hepatitis - C Past Surgical History: Reports: Hx Genitourinary Surgery - Vasectomy, Hx Oral Surgery, Hx Orthopedic Surgery - right hand, Hx Tonsillectomy - Immunizations Immunizations up to date: Yes Hx Diphtheria, Pertussis, Tetanus Vaccination: Yes - 2015 Review of Systems - Review of Systems Constitutional: denies: Chills, Fever Cardiovascular: denies: Chest pain, Palpitations Respiratory: denies: Cough, Short of breath -: Yes All other systems reviewed and negative Physical Exam - Vital signs Vitals: Temp Pulse Resp BP Pulse Ox 98.3 F 95 18 127/71 H 97 07/12/19 12:40 07/12/19 12:40 07/12/19 12:40 07/12/19 12:40 07/12/19 12:40 Interpretation: Normal - General General appearance: Appears well, Alert - HEENT Head: Normocephalic, Atraumatic Eyes: Normal Pupils: PERRL - Respiratory Respiratory status: No respiratory distress Chest status: Nontender Breath sounds: Normal Chest palpation: Normal - Cardiovascular Rhythm: Regular Heart sounds: Normal auscultation Murmur: No - Abdominal Inspection: Normal Distension: No distension Bowel sounds: Normal Tenderness: Nontender Organomegaly: No organomegaly - Back Back: Normal, Nontender - Extremities General upper extremity: Other - Left upper extremity exam is unremarkable. Right upper extremity exam is remarkable for a slightly hyperemic and swollen right upper extremity. He is wearing a compression stocking on the right arm. He does have good capillary refill in all fingers. He is mildly tender to palpation of the right hand and arm. Exam does appear consistent with a flare of the reflex sympathetic dystrophy type chronic process. General lower extremity: Normal inspection, Nontender, Normal color, Normal ROM, Normal temperature, Normal weight bearing. No: Ana M's sign - Neurological Neuro grossly intact: Yes Cognition: Normal Orientation: AAOx4 Jeremy Coma Scale Eye Opening: Spontaneous [place] Coma Scale Verbal: Oriented [place] Coma Scale Motor: Obeys Commands [place] Coma Scale Total: 15 Speech: Normal Motor strength normal: LUE, RUE, LLE, RLE Sensory: Normal - Psychological Associated symptoms: Normal affect, Normal mood - Skin Skin Temperature: Warm Skin Moisture: Dry Skin Color: Normal Course - Vital Signs Vital signs: Temp Pulse Resp BP Pulse Ox 98.3 F 95 18 127/71 H 97 07/12/19 12:40 07/12/19 12:40 07/12/19 12:40 07/12/19 12:40 07/12/19 12:40 - Laboratory Result Diagrams: 07/12/19 18:28 07/12/19 18:28 Laboratory results interpreted by me: 07/12/19 07/12/19 18:28 18:28 MCH 26.9 L RDW 15.1 H Lymph % (Auto) 45.8 H BUN 5 L Glucose 72 L Total Protein 9.0 H Discharge - Discharge Clinical Impression: Complex regional pain syndrome Qualifiers: 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
[2019-07-12 20:04] VITALS: BP 132/70
== END 2019-07-12 20:04 | disposition home or self-care (01) ==
LOC: ER 12:35
DX: G56.41 Causalgia of right upper limb (principal); M79.89 Other specified soft tissue disorders; F17.200 Nicotine dependence, unspecified, uncomplicated
CPT/HCPCS: 99284; 96374; 96375; 36415; 85025; 80053; 93971; J1885; J1170; J7030

== ENCOUNTER 2019-10-06 16:30 | Emergency (ER) | payer OTHER ==
[2019-10-06] MEDS ORDERED: HYDROMORPHONE HCL INJ/PF 2 MG/ML AMPULE IV ONE ×2 (16:52→19:37)
[2019-10-06] MEDS ORDERED: KETOROLAC TROMETHAMINE INJ/PF 30 MG/1 ML SDV IV ONE (16:52)
[2019-10-06] MEDS ORDERED: ONDANSETRON HCL INJ/PF 4 MG/2 ML SDV IV ONE (16:52)
[2019-10-06] MEDS ORDERED: NORMAL SALINE 1000 ML 1,000 ML IV PRN (16:52)
--- NOTE | 2019-10-06 16:54 | ER Document Report ---
ED Medical Screen (RME) - General Chief Complaint: Pain All Over Stated Complaint: PAIN ALL OVER Time Seen by Provider: 10/06/19 16:45 Primary Care Provider: JOSE FRYE [Primary Care Provider] - Follow up as needed TRAVEL OUTSIDE OF THE [place] IN LAST 30 DAYS: No - HPI Notes: 10/06/19 16:52 Patient is a 29-year-old male who presents complaining of a flareup of his complex regional pain syndrome to his arms over the past couple days. Patient states that he has been shaking and having some vomiting when the pain gets severe. Patient believes that he may have been running a fever as well. He called his pain management group and told him to come here for evaluation to help with the pain. His pain management group is located at [place]. Patient states that he is not here for any scripts to go home as he does not want to mess up his pain contract and just needs Toradol, fluids, and a little pain medicine at this time. No recent illness otherwise. Denies any URI symptoms, cough, chest pain, shortness of breath, abdominal pain. I have treated and performed a rapid initial assessment of this patient. A comprehensive ED assessment and evaluation of the patient, analysis of test results and completion of medical decision making process will be conducted by additional ED providers. PHYSICAL EXAMINATION: GENERAL: Well-appearing, well-nourished and in no acute distress. A&Ox4. Answers questions appropriately. Heart: RRR, but tachycardic. Lungs: CTAB. - Related Data Allergies/Adverse Reactions: No Known Allergies Allergy (Verified 10/06/19 16:46) Past Medical History Pulmonary Medical History: Reports: Hx Bronchitis Renal/ Medical History: Denies: Hx Peritoneal Dialysis GI Medical History: Reports: Hx Hepatitis - C Musculoskeltal Medical History: Reports Hx Musculoskeletal Deformity, Reports Hx Musculoskeletal Trauma Skin Medical History: Reports Hx Cellulitis Psychiatric Medical History: Reports: Hx Depression Traumatic Medical History: Reports: Hx Fractures Infectious Medical History: Reports: Hx Hepatitis - C Past Surgical History: Reports: Hx Genitourinary Surgery - Vasectomy, Hx Oral Surgery, Hx Orthopedic Surgery - right hand, Hx Tonsillectomy - Immunizations Immunizations up to date: Yes Hx Diphtheria, Pertussis, Tetanus Vaccination: Yes - 2015 Physical Exam - Vital signs Vitals: Temp Pulse Resp BP Pulse Ox 99.5 F 134 H 18 137/86 H 97 10/06/19 16:35 10/06/19 16:35 10/06/19 16:35 10/06/19 16:35 10/06/19 16:35 Course - Vital Signs Vital signs: Temp Pulse Resp BP Pulse Ox 99.5 F 134 H 18 137/86 H 97 10/06/19 16:35 10/06/19 16:35 10/06/19 16:35 10/06/19 16:35 10/06/19 16:35 Doctor's Discharge - Discharge Referrals: [facility] [Primary Care Provider] - Follow up as needed
[2019-10-06 17:35] LABS: APPEARANCE,URINE SLIGHTLY-CLOUDY; BILIRUBIN,URINE SMALL (NEGATIVE); COLOR,URINE AMBER; GLUCOSE, URINE NEGATIVE (NEGATIVE); KETONES,URINE TRACE mg/dL (NEGATIVE); PROTEIN,URINE 100 mg/dL (NEGATIVE); URINE SPECIFIC GRAVITY 1.021
[2019-10-06 17:38] LABS: HEMATOCRIT 40.7 % (37.9-51.0); HEMOGLOBIN 13.6 g/dL (13.5-17.0); MEAN CORPUSCULAR HEMOGLOBIN 26.7 pg (27.0-33.4); MEAN CORPUSCULAR HGB CONC 33.4 g/dL (32.0-36.0); MEAN CORPUSCULAR VOLUME 80 fl (80-97); PLATELET COUNT 187 10^3/uL (150-450); RED BLOOD COUNT 5.08 10^6/uL (4.35-5.55); RED CELL DISTRIBUTION WIDTH 15.7 % (11.5-14.0); WHITE BLOOD COUNT 11.6 10^3/uL (4.0-10.5)
[2019-10-06 17:48] LABS: ALBUMIN 4.3 g/dL (3.5-5.0); ALKALINE PHOSPHATASE 152 U/L (38-126); ANION GAP 13 (5-19); ASPARTATE AMINO TRANSFERASE 73 U/L (17-59); BILIRUBIN,DIRECT 0.3 mg/dL (0.0-0.4); BILIRUBIN,TOTAL 1.1 mg/dL (0.2-1.3); BLOOD UREA NITROGEN 8 mg/dL (7-20); CALCIUM 9.5 mg/dL (8.4-10.2); CARBON DIOXIDE 24 mmol/L (22-30); CHLORIDE 99 mmol/L (98-107); GLUCOSE 175 mg/dL (75-110); TOTAL PROTEIN 8.2 g/dL (6.3-8.2)
[2019-10-06 18:14] LABS: ABSOLUTE LYMPHOCYTES# (MANUAL) 0.7 10^3/uL (0.5-4.7); ABSOLUTE MONOCYTES # (MANUAL) 0.1 10^3/uL (0.1-1.4); ANISOCYTOSIS 1+; BAND NEUTROPHILS % (MANUAL) 8 % (3-5); BASOPHILS % (MANUAL) 0 % (0-2); EOSINOPHILS % (MANUAL) 0 % (0-6); LYMPHOCYTES % (MANUAL) 6 % (13-45); MONOCYTES % (MANUAL) 1 % (3-13); SEGMENTED NEUTROPHILS % (MAN) 85 % (42-78); TOTAL CELLS COUNTED 100
[2019-10-06 18:15] LABS: PLATELET COMMENT ADEQUATE
[2019-10-06] MEDS ORDERED: ACETAMINOPHEN 325 MG TABLET PO ONE (18:36)
--- NOTE | 2019-10-06 18:44 | ER Document Report ---
ED General - General Chief Complaint: Arm Pain Stated Complaint: PAIN ALL OVER Time Seen by Provider: 10/06/19 16:45 [facility] [[facility]] - Follow up as needed Mode of Arrival: Ambulatory Information source: Patient, [facility] Records Notes: This 29-year-old male patient who has a past history of complex regional pain syndrome comes to the emergency room complaining of a flareup of his CRP that started on 10/02/2019. He reports this morning he vomited a few times due to the pain. He had shaking chills this morning. He did call his pain management group and [place], and was told that since the weather turned very cold that several patients have had a flareup of their CRP. In discussing the problem with the patient, he states that he has had a flareup in the past when he became bacteremic. He denies cough, congestion, runny nose, sore throat. He says the pain is much worse in the right hand and arm than the left side, but that is where the problem started originally. Tonight the pain was so severe that he was unable to get the glove on his right hand. He wears a compression type stockings on his arms and gloves on his hands. He is scheduled to go up to [place] this coming Friday for preop work-up with plans to get a spinal stimulator placed sometime in the near future. He does take oxycodone 5 mg 4 times daily for his chronic pain syndrome. He is requesting some IV pain medication, Toradol, and IV fluids, as that usually helps bring his flareups under control. He did have IV fluids started and has had about 500 mL's run and so far, he did have Toradol, and he did have 0.5 mg of Dilaudid IV. TRAVEL OUTSIDE OF THE [place] IN LAST 30 DAYS: No - Related Data Allergies/Adverse Reactions: vancomycin Allergy (Verified 10/06/19 16:53) Home Medications: clonidine, gabapentin, nortriptyline, oxycodone, tiaznidine, tramadol Past Medical History - General Information source: Patient, [facility] Records - Social History Smoking Status: Current Every Day Smoker Cigarette use (# per day): Yes - 1/2 PPD Chew tobacco use (# tins/day): No Smoking Education Provided: No Frequency of alcohol use: None Drug Abuse: None Occupation: medically retired/disabled Lives with: Spouse/Significant other Family History: Reviewed & Not Pertinent, Malignancy, Other Patient has suicidal ideation: No Patient has homicidal ideation: No Pulmonary Medical History: Reports: Hx Bronchitis GI Medical History: Reports: Hx Hepatitis - C Musculoskeletal Medical History: Reports Hx Musculoskeletal Deformity, Reports Hx Musculoskeletal Trauma, Reports Other - Complex regional pain syndrome involving the upper extremities Skin Medical History: Reports Hx Cellulitis Psychiatric Medical History: Reports: Hx Depression Traumatic Medical History: Reports: Hx Fractures Infectious Medical History: Reports: Hx Hepatitis - C Past Surgical History: Reports: Hx Genitourinary Surgery - Vasectomy, Hx Oral Surgery, Hx Orthopedic Surgery - right hand, Hx Tonsillectomy - Immunizations Immunizations up to date: Yes Hx Diphtheria, Pertussis, Tetanus Vaccination: Yes - 2015 Review of Systems - Review of Systems Constitutional: See HPI, Chills, Fever EENT: No symptoms reported Cardiovascular: No symptoms reported Respiratory: No symptoms reported Gastrointestinal: No symptoms reported Genitourinary: No symptoms reported Musculoskeletal: See HPI Skin: No symptoms reported Hematologic/Lymphatic: No symptoms reported Neurological/Psychological: No symptoms reported Physical Exam - Vital signs Vitals: Temp Pulse Resp BP Pulse Ox 99.5 F 134 H 18 137/86 H 97 10/06/19 16:35 10/06/19 16:35 10/06/19 16:35 10/06/19 16:35 10/06/19 16:35 - General General appearance: Appears well, Alert In distress: None - HEENT Head: Normocephalic, Atraumatic Eyes: Normal Pupils: PERRL Nasal: Normal Mouth/Lips: Normal Pharynx: Normal - Respiratory Respiratory status: No respiratory distress Breath sounds: Wheezing - Patient has some wheezes and when I have him cough there is some rhonchi and increased wheezing. - Cardiovascular Rhythm: Regular Heart sounds: Normal auscultation Murmur: No - May - Abdominal Inspection: Normal - Back Back: Normal - Extremities General upper extremity: Edema - Very tender to palpate the right hand and fingers, less tender on the left side., Other - Patient wears compression stocking and glove on his upper extremities - Neurological Neuro grossly intact: Yes - Psychological Associated symptoms: Normal affect, Normal mood - Skin Skin Temperature: Warm Skin Moisture: Diaphoretic Skin Color: Normal Course - Re-evaluation Re-evalutation: 10/06/19 20:54 The patient does report that he has been bacteremic in the past. He has some holes in his mitral valve by history and has had ANTHONY's before, but never vegetations on the valve. I did discuss antibiotics versus waiting on cultures with the patient and together we decided to do the prophylactic antibiotics because of the mitral valve issue. I had discussed the case with the on-call hospitalist here earlier this evening and he had recommended Levaquin for 4 days if we did decide to do antibiotics. - Vital Signs Vital signs: Temp Pulse Resp BP Pulse Ox 99.5 F 134 H 18 137/86 H 97 10/06/19 16:35 10/06/19 16:35 10/06/19 16:35 10/06/19 16:35 10/06/19 16:35 - Laboratory Result Diagrams: 10/06/19 17:10 10/06/19 17:10 Laboratory results interpreted by me: 10/06/19 10/06/19 10/06/19 17:00 17:10 17:10 WBC 11.6 H MCH 26.7 L RDW 15.7 H Seg Neuts % (Manual) 85 H Band Neutrophils % 8 H Lymphocytes % (Manual) 6 L Monocytes % (Manual) 1 L Abs Neuts (Manual) 10.8 H Sodium 136.1 L Glucose 175 H AST 73 H Alkaline Phosphatase 152 H Urine Protein 100 H Urine Ketones TRACE H Urine Blood MODERATE H Urine Bilirubin SMALL H Urine Urobilinogen 4.0 H - Diagnostic Test Radiology reviewed: Image reviewed, Reports reviewed - Chest x-ray does not show acute findings. Discharge - Discharge Clinical Impression: Complex regional pain syndrome affecting both upper arms Fever Qualifiers: Fever type: unspecified Qualified Code(s): R50.9 - Fever, unspecified Leukocytosis Qualifiers: Leukocytosis type: unspecified Qualified Code(s): D72.829 - Elevated white blood cell count, unspecified Condition: Stable Disposition: HOME, SELF-CARE Additional Instructions: Continue your regular medications. Drink plenty of fluids. Take Tylenol every 4 hours for fever as needed. Start taking the Levaquin as prescribed tomorrow evening. Take each daily dose in the evening. Call the emergency room Friday evening about 6 PM and ask for me so we can discuss the blood culture results. RETURN TO THE EMERGENCY ROOM IF ANY NEW OR WORSENING SYMPTOMS. Prescriptions: Levofloxacin [Levaquin 500 mg Tablet] 500 mg PO DAILY #4 tablet [facility] [[facility]] - Follow up as needed
[2019-10-06] MEDS ORDERED: IPRATROPIUM/ALBUTEROL 0.5-2.5 MG/3 ML AMPUL NEB ONE (18:48)
--- NOTE | 2019-10-06 19:09 | RADIOLOGY REPORT (SQ) ---
EXAM DESCRIPTION: CHEST 2 VIEWS COMPLETED DATE/TIME: 10/06/2019 7:01 pm REASON FOR STUDY: Wheezes, rhonchi, leukocytosis, fever COMPARISON: None. EXAM PARAMETERS: NUMBER OF VIEWS: two views TECHNIQUE: Digital Frontal and Lateral radiographic views of the chest acquired. RADIATION DOSE: NA LIMITATIONS: none FINDINGS: LUNGS AND PLEURA: No opacities, masses or pneumothorax. No pleural effusion. MEDIASTINUM AND HILAR STRUCTURES: No masses or contour abnormalities. HEART AND VASCULAR STRUCTURES: Heart normal size. No evidence for failure. BONES: No acute findings. HARDWARE: None in the chest. OTHER: No other significant finding. IMPRESSION: NO ACUTE RADIOGRAPHIC FINDING IN THE CHEST. TECHNICAL DOCUMENTATION: JOB ID: [id number] [employer] All Rights Reserved Reading location - IP/workstation name: [email or web address]
[2019-10-06] MEDS ORDERED: LEVOFLOXACIN 750 MG TABLET PO ONE (20:53)
[2019-10-06 21:19] VITALS: BP 107/56
== END 2019-10-06 21:20 | disposition home or self-care (01) ==
LOC: ER 16:30
DX: G56.43 Causalgia of bilateral upper limbs (principal); R50.9 Fever, unspecified; D72.829 Elevated white blood cell count, unspecified; R11.10 Vomiting, unspecified; R06.2 Wheezing; R60.0 Localized edema; F17.210 Nicotine dependence, cigarettes, uncomplicated; F32.9 Major depressive disorder, single episode, unspecified; Z79.899 Other long term (current) drug therapy; Z79.891 Long term (current) use of opiate analgesic; Z88.1 Allergy status to other antibiotic agents
CPT/HCPCS: 96376; 94640; 99283; 96361; 96374; 96375; 36415; 87040; 87086; 85025; 80053; 81001; 71046; J1885; J1170; J2405; J7030; J7620

== ENCOUNTER 2020-02-28 18:32 | Emergency (ER) | payer OTHER ==
[2020-02-28 18:38] VITALS: BP 137/84
[2020-02-28] MEDS ORDERED: ACETAMINOPHEN 325 MG TABLET PO ONE (18:59)
--- NOTE | 2020-02-28 19:01 | ER Document Report ---
ED Medical Screen (RME) - General Mode of Arrival: Ambulatory Information source: Patient TRAVEL OUTSIDE OF THE [place] IN LAST 30 DAYS: No - General Chief Complaint: Abscess Stated Complaint: ARM PAIN/POSS ABSCESS Time Seen by Provider: 02/28/20 18:55 Primary Care Provider: JOSE FRYE [Primary Care Provider] - Follow up as needed Notes: 29-year-old male presented to ED for abscess to the right forearm. He states he started with pain about 4 days ago and he thought it was just a flareup of his CRPS and nerve condition he has both arms. He states then he started developing the abscess to the right forearm so he came to the emergency room to have it examined. He states he does vape and smokes 2 cigarettes a day. He does not drink or use any illicit drugs. He is alert oriented respirations regular nonlabored speaking in full sentence there is an obvious abscess to the right forearm. I have greeted and performed a rapid initial assessment of this patient. A comprehensive ED assessment and evaluation of the patient, analysis of test results and completion of medical decision making process will be conducted by a n additional ED providers. (ANICETO ARREAGA) - Related Data Allergies/Adverse Reactions: chocolate flavor Allergy (Verified 02/28/20 18:48) vancomycin Allergy (Verified 10/06/19 16:53) Past Medical History Pulmonary Medical History: Reports: Hx Bronchitis Renal/ Medical History: Denies: Hx Peritoneal Dialysis GI Medical History: Reports: Hx Hepatitis - C Musculoskeltal Medical History: Reports Hx Musculoskeletal Deformity, Reports Hx Musculoskeletal Trauma Skin Medical History: Reports Hx Cellulitis Psychiatric Medical History: Reports: Hx Depression Traumatic Medical History: Reports: Hx Fractures Infectious Medical History: Reports: Hx Hepatitis - C Past Surgical History: Reports: Hx Genitourinary Surgery - Vasectomy, Hx Oral Surgery, Hx Orthopedic Surgery - right hand, Hx Tonsillectomy - Immunizations Immunizations up to date: Yes Hx Diphtheria, Pertussis, Tetanus Vaccination: Yes - 2015 Physical Exam - Vital signs Vitals: Temp Pulse Resp BP Pulse Ox 98.9 F 121 H 20 137/84 H 98 02/28/20 18:35 02/28/20 18:35 02/28/20 18:35 02/28/20 18:35 02/28/20 18:35 Course - Vital Signs Vital signs: Temp Pulse Resp BP Pulse Ox 98.9 F 108 H 20 137/84 H 98 02/28/20 18:48 02/28/20 18:59 02/28/20 18:59 02/28/20 18:35 02/28/20 18:35 Doctor's Discharge - Discharge [facility]errals: [facility] [[facility]] - Follow up as needed
--- NOTE | 2020-02-28 22:29 | ER Document Report ---
ED General - General Chief Complaint: Abscess Stated Complaint: ARM PAIN/POSS ABSCESS Time Seen by Provider: 02/28/20 18:55 [facility] [[facility]] - Follow up as needed Mode of Arrival: Ambulatory Notes: triage notes 02/28/20 18:50 - ED Nursing Note by ZHOU NYE Acc Num: [id number] : 1990 Patient Age: 29 Addendum entered by ZHOU NYE RN 02/28/20 18:57: Correction: abscesses, not abbesses. Original Note: Pt presents to ED for right arm pain that started about 4 days ago. There is a red/tender/swollen area to the right forearm. There has been some drainage. The pt has a hx of CRPS for which he has to wear compression sleeves to control the pain. He is concerned the rubbing of the sleeve caused a possible abscess. The pt does have a hx of abbesses. The pt denies fever or chills. No other symptoms. The pt is aox4. Resps even and unlabored. Wilma notes 29-year-old male presented to ED for abscess to the right forearm. He states he started with pain about 4 days ago and he thought it was just a flareup of his CRPS and nerve condition he has both arms. He states then he started developing the abscess to the right forearm so he came to the emergency room to have it examined. He states he does vape and smokes 2 cigarettes a day. He does not drink or use any illicit drugs. He is alert oriented respirations regular nonlabored speaking in full sentence there is an obvious abscess to the right forearm. I went out to evaluate this patient and he had left without being seen. TRAVEL OUTSIDE OF THE [place] IN LAST 30 DAYS: No - Related Data Allergies/Adverse Reactions: chocolate flavor Allergy (Verified 02/28/20 18:48) vancomycin Allergy (Verified 10/06/19 16:53) Past Medical History - General Information source: Patient - Social History Smoking Status: Current Every Day Smoker Family History: Reviewed & Not Pertinent, Malignancy, Other Patient has homicidal ideation: No Pulmonary Medical History: Reports: Hx Bronchitis Renal/ Medical History: Denies: Hx Peritoneal Dialysis GI Medical History: Reports: Hx Hepatitis - C Musculoskeletal Medical History: Reports Hx Musculoskeletal Deformity, Reports Hx Musculoskeletal Trauma Skin Medical History: Reports Hx Cellulitis Psychiatric Medical History: Reports: Hx Depression Traumatic Medical History: Reports: Hx Fractures Infectious Medical History: Reports: Hx Hepatitis - C Past Surgical History: Reports: Hx Genitourinary Surgery - Vasectomy, Hx Oral Surgery, Hx Orthopedic Surgery - right hand, Hx Tonsillectomy - Immunizations Immunizations up to date: Yes Hx Diphtheria, Pertussis, Tetanus Vaccination: Yes - 2015 Physical Exam - Vital signs Vitals: Temp Pulse Resp BP Pulse Ox 98.9 F 121 H 20 137/84 H 98 02/28/20 18:35 02/28/20 18:35 02/28/20 18:35 02/28/20 18:35 02/28/20 18:35 Course - Vital Signs Vital signs: Temp Pulse Resp BP Pulse Ox 98.9 F 108 H 20 137/84 H 98 02/28/20 18:48 02/28/20 18:59 02/28/20 18:59 02/28/20 18:35 02/28/20 18:35 Discharge - Discharge Clinical Impression: Abscess of arm, right Disposition: LEFT WITHOUT BEING SEEN [facility]errals: [facility] [[facility]] - Follow up as needed
== END 2020-02-28 22:42 | disposition left against medical advice (07) ==
LOC: ER 18:32
DX: L02.413 Cutaneous abscess of right upper limb (principal); F17.200 Nicotine dependence, unspecified, uncomplicated; Z88.1 Allergy status to other antibiotic agents
CPT/HCPCS: 99281